=== PATIENT | female | born 1965 | race Caucasian/White ===

== ENCOUNTER 2023-11-21 18:26 | Emergency (ER) | payer OTHER ==
[~2023-11-21] VITALS: Ht 152.4 cm; Wt 57.2 kg
[2023-11-21 18:51] VITALS: BP 153/77; PULSE 86; RESP 20; TEMP 97.7; O2SAT 98
[2023-11-21] MEDS: ONDANSETRON 4 MG ODT PO ONE (21:46)
[2023-11-21] MEDS ORDERED: ONDA-188 SL (22:02)
[2023-11-21] MEDS ORDERED: ACET-10509 PO (22:02)
[2023-11-21] MEDS ORDERED: MELA10CA PO (22:02)
[2023-11-21 22:57] VITALS: BP 140/77; PULSE 86; RESP 20; TEMP 97.7; O2SAT 98
== END 2023-11-21 23:55 | disposition home or self-care (01) ==
LOC: MED 18:26
DX: R51.9 Headache, unspecified (principal); R11.0 Nausea; Z86.011 Personal history of benign neoplasm of the brain; Z79.899 Other long term (current) drug therapy
CPT/HCPCS: 70450; 99284; Q0162